=== PATIENT | female | born 1985 | race Caucasian/White ===

== ENCOUNTER 2017-05-19 10:58 | Emergency (ER) | payer OTHER ==
--- NOTE | 2017-05-19 12:47 | RAD ---
HISTORY: Lidocaine stool COMPARISONS: None VIEWS: Frontal views of the abdomen. FINDINGS: BOWEL: There is a nonobstructive bowel gas pattern. There is a large amount of stool within the colon. CALCULI: There are no abnormal calculi. BONES AND SOFT TISSUES: There are no osseous abnormalities. OTHER FINDINGS: The lung bases are clear. There is no subphrenic gas. IMPRESSION: NONOBSTRUCTIVE BOWEL GAS PATTERN. LARGE AMOUNT OF STOOL WITHIN THE COLON.
[2017-05-19 14:19] VITALS: BP 110/62
--- NOTE | 2017-05-19 16:01 | ED ---
I, Oh,Soohstephane, scribed for Dave Link MD on 05/19/17 at 1202 . Abdominal Pain/Female - HPI Summary HPI Summary: This 31 y/o female presents to ED for lower abd pain since 2-3 days ago. Pt reports positive back pain at time of onset, which pt dismissed due to prolonged walking. Back pain is worse with straightened posture. Positive n/v 2 days ago, small amount of blood in stool noted, constipation, and increased gas. Pt has been controlling constipation with prescribed medications and magnesium citrate with little relief. Last time magnesium citrate was taken was yesterday, and pt was able to have small BM. - History of Current Complaint Chief Complaint: EDAbdPain Stated Complaint: BLOOD IN STOOL/BACK-PELVIC PAIN Time Seen by Provider: 05/19/17 11:22 Hx Obtained From: Patient Onset/Duration: Gradual Onset, Still Present Timing: Constant Pain Intensity: 8 Pain Scale Used: 0-10 Numeric Location: Discrete At: RLQ, Discrete At: LLQ Radiates: No Character: Dull Aggravating Factor(s): Nothing Alleviating Factor(s): Nothing Associated Signs and Symptoms: Positive: Constipation, Blood in Stool, Nausea, Vomiting - 2 days ago, Other: - Increased gas. Negative: Fever Allergies/Adverse Reactions: Allergies Allergy/AdvReac Type Severity Reaction Status Date / Time No Known Allergies Allergy Verified 05/19/17 11:32 PMH/Surg Hx/FS Hx/Imm Hx GI History: Reports: Other GI Disorders - constipation Infectious Disease History: No Infectious Disease History: Denies: Traveled Outside the [place] in Last 30 Days - Family History Known Family History: Positive: Other - Grandmother with colon CA. Grandfather with stomach CA. - Social History Alcohol Use: None Substance Use Type: Reports: None Smoking Status (MU): Never Smoked Tobacco Review of Systems Negative: Fever Positive: Abdominal Pain - lower abd pain, Vomiting - 2 days ago, Nausea, Other - Positive constipation, small blood noted in stool Positive: Other - back pain All Other Systems Reviewed And Are Negative: Yes Physical Exam - Summary Physical Exam Summary: Well-appearing, no pain distress, obese Warm, dry, color reflects adequate perfusion Nml head/face Nml eyes Nml ENT Supple, non-tender CTA, breath sound present RRR Mild diffuse tenderness Bowel sounds + Nml musculoskeletal Nml neuro Nml psychiatric, affect/mood appropriate Triage Information Reviewed: Yes Vital Signs On Initial Exam: Initial Vitals Temp Pulse Resp BP Pulse Ox 98.5 F 68 16 107/67 98 05/19/17 10:59 05/19/17 10:59 05/19/17 10:59 05/19/17 10:59 05/19/17 10:59 Vital Signs Reviewed: Yes - [place] Coma Scale Coma Scale Total: 15 Diagnostics - Vital Signs Vital Signs Temp Pulse Resp BP Pulse Ox 05/19/17 11:27 65 98 05/19/17 11:25 114/60 05/19/17 11:22 98.5 F 70 18 114/60 98 05/19/17 10:59 98.5 F 68 16 107/67 98 - Laboratory Lab Statement: Any lab studies that have been ordered have been reviewed, and results considered in the medical decision making process. - Radiology X-ray Abd Xray Interpretation: Positive (See Comments) - NONOBSTRUCTIVE BOWEL GAS PATTERN. LARGE AMOUNT OF STOOL WITHIN THE COLON. Radiology Interpretation Completed By: Radiologist Re-Evaluation - Re-Evaluation First Eval Re-Evaluation Time: 13:18 Comment: MD in room to update pt on bloodwork and X-ray imaging result. Plan of care involving discharge and outpatient f/u is discussed with pt. Abdominal Pain Fem Course/Dx - Course Course Of Treatment: Ms. Hightower described history of constipation for a couple weeks with increasing low back pain and suprapubic pain. She saw blood when she did pass a hard stool. She tried an OTC laxative last night and only passed diarrhea this AM. A KUB revealed a great amount of stool thoughout her colon which I could not reach with a finger. I recommended cleaning her out with a both ends approach and then reevaluating her symptoms. - Diagnoses Provider Diagnoses: Constipation, Abdominal pain Discharge - Discharge Plan Condition: Stable Disposition: HOME Prescriptions: Bisacodyl EC TAB* [Dulcolax EC TAB*] 10 mg PO DAILY #4 tab.ec Mineral Oil ENEMA* [Fleet Mineral Oil Enema*] 1 bottle [place] DAILY #2 btl Patient Education Materials: Bisacodyl (By mouth), Constipation (ED), Fleet Enema (ED) Referrals: [facility] [place] [facility]ERR[facility] [Outside] - 2 Days Non Staff,Doctor [Primary Care Provider] - Additional Instructions: Please be sure to follow up with your primary care provider. The documentation as recorded by the Earl gamez Soohyun accurately reflects the service I personally performed and the decisions made by me, Dave Link MD.
== END 2017-05-19 14:19 | disposition home or self-care (01) ==
LOC: ED 10:58
DX: K92.1 Melena (principal); K59.00 Constipation, unspecified; R11.2 Nausea with vomiting, unspecified; M54.9 Dorsalgia, unspecified; R10.9 Unspecified abdominal pain
CPT/HCPCS: 74000; 99282